=== PATIENT | female | born 1950 | race Caucasian/White ===

== ENCOUNTER 2019-06-10 11:00 | Emergency (ER) | payer OTHER, BC ==
--- OUTSIDE RECORDS SUMMARY | 2019-06-10 11:02 | XMS REPORT | Continuity of Care Document ---
:1950 Author Organization [facility] Care Team Providers Name Role Phone Jorge Ta MD Unavailable Unavailable Insurance Providers Payer name Policy type / Coverage Policy ID Covered green party ID Policy [employer] type [employer] Encounters Encounter Performer Location Date Office Visit [facility] Oct 07, 2013 Allergies, Adverse Reactions, Alerts Type Substance Reaction Status Environmental allergy SEASONAL ALLERGIES Active Problems Problem Effective Dates Problem Status HYPERTENSION Oct 07, 2013 Active ALLERGIC RHINITIS Oct 07, 2013 Active NECK PAIN Active ASTHMA Active CERVICAL DDD Oct 07, 2013 Active CERVICAL RADICULOPATHY Oct 07, 2013 Active HIP PAIN, BILATERAL Oct 07, 2013 Active Medications Medication Instructions Start Date Status MONTELUKAST SODIUM 10 MG TABS per other M.D. Oct 07, 2013 Active LEVOCETIRIZINE DIHYDROCHLORIDE 5 MG TABS per other M.D. Oct 07, 2013 Active B-12 TABS OTC Oct 07, 2013 Active DAILY VITAMINS TABS OTC Oct 07, 2013 Active MOBIC 15 MG TABS 1 PO QD Oct 07, 2013 Active Vital Signs Date Description Test Result Oct 07, 2013 weight E&M - 3141-9 WEIGHT 168 lb Oct 07, 2013 height E&M - 8302-2 HEIGHT 65 in Oct 07, 2013 blood pressure, systolic - 8480-6 BP SYSTOLIC 127 mm Hg Oct 07, 2013 blood pressure, diastolic - 8462-4 BP DIASTOLIC 79 mm Hg Oct 07, 2013 pulse rate E&M - 8867-4 PULSE RATE 68 /min
--- OUTSIDE RECORDS SUMMARY | 2019-06-10 11:02 | XMS REPORT | Continuity of Care Document ---
:1950 Author Organization [facility] Care Team Providers Name Role Phone [facility] Unavailable Unavailable Problems Problem Status Onset Classification Date Comments Source Date Reported HYPERTENSION Active 10/07/19 Condition 10/07/2013 [facility] ALLERGIC RHINITIS Active 10/07/19 Condition 10/07/2013 [facility] CERVICAL DDD Active 10/07/19 Condition 10/07/2013 [facility] CERVICAL Active 10/07/19 Condition 10/07/2013 [facility] RADICUL[facility] HIP PAIN, Active 10/07/19 Condition 10/07/2013 [facility] BILATER[facility] NECK PAIN Active Condition 10/07/2013 [facility] ASTHMA Active Condition 10/07/2013 [facility] Medications Medication Details Route Status Patient Ordering Order Source Instructions Provider Date MONTELUKAST SODIUM per other Active [facility] 10 MG TABS [facility] LEVOCETIRIZINE per other Active [facility] DIHYDROCHLORIDE 5 [facility] B-12 TABS OTC Active [facility] DAILY VITAMINS OTC Active [facility]S [facility] MOBIC 15 MG TABS 1 PO QD Active [facility] Allergies, Adverse Reactions, Alerts Substance Category Reaction Severity Reaction Status Date Comments Source type Reported SEASONAL Environmental SEASONAL [facility] ALLERGIES allergy ALLERG[facility] Immunizations No Data Provided for This Section Results No Data Provided for This Section Pathology Reports No Data Provided for This Section Diagnostic Reports No Data Provided for This Section Consultation Notes No Data Provided for This Section Discharge Summaries No Data Provided for This Section History and Physicals No Data Provided for This Section Vital Signs Vital Sign Value Date Comments Source Weight 168 10/07/2013 [facility] Height 65 10/07/2013 [facility] Systolic (mm Hg) 127 10/07/2013 [facility] Diastolic (mm Hg) 79 10/07/2013 [facility] Heart Rate 68 10/07/2013 [facility] Encounters Location Location Encounter Encounter Reason Attending ADM DC Status Source Details Type Number For Provider Date Date Visit [facility] [id number] Mohammad 10/07 10/07 [facility] Visit 80 Cely PRABHAKAR /[facility] Procedures No Data Provided for This Section Assessment and Plan No Data Provided for This Section Plan of Care No Data Provided for This Section Social History No Data Provided for This Section Family History No Data Provided for This Section Advance Directives No Data Provided for This Section Functional Status No Data Provided for This Section
[2019-06-10 11:26] LABS: Absolute Lymphocytes (CBC) 2.6 K/uL (0.7-4.9); Basophils % 0.8 % (0-1.3); Hematocrit 38.3 % (36.0-45.0); Lymphocytes % 30.7 % (15.3-44.8); MPV 8.3 fL (7.6-11.3); RBC Red Blood Cell Count 4.41 M/uL (3.86-4.86)
[2019-06-10 11:35] LABS: Protime INR 1.07
[2019-06-10 11:41] LABS: ALT/SGPT 19 U/L (12-78); AST/SGOT 13 U/L (15-37); Albumin 4.1 g/dL (3.4-5.0); Alkaline Phosphatase 82 U/L (45-117); BUN Blood Urea Nitrogen 13 mg/dL (7-18); Bicarbonate 26 mmol/L (21-32); Bilirubin Direct 0.3 mg/dL (0-0.2); Bilirubin Total 1.6 mg/dL (0.2-1.0); Glucose Level 176 mg/dL (74-106); Magnesium 2.2 mg/dL (1.8-2.4); NT PRO-BNP 34 pg/mL (<125); Potassium 3.5 mmol/L (3.5-5.1); Protein, Total 6.5 g/dL (6.4-8.2); Sodium Level 142 mmol/L (136-145); Troponin (Emerg Dept Use Only) < 0.02 ng/mL (0.0-0.045)
--- NOTE | 2019-06-10 12:25 | RAD REPORT ---
EXAM DESCRIPTION: RAD - Chest Single View - 06/10/2019 12:01 pm CLINICAL HISTORY: Syncope, shortness of breath COMPARISON: May 2015 TECHNIQUE: AP portable chest image was obtained 1124 hours . FINDINGS: Lung volumes are low. No focal lung parenchymal process. No failure or volume overload fin dings. Heart and vasculature are normal. No measurable pleural effusion and no pneumothorax. No acute bony abnormality seen. No acute aortic findings suspected. IMPRESSION: No acute cardiopulmonary process. No significant interval change.
--- NOTE | 2019-06-10 12:29 | ER ---
Nurse's Notes [facility] Name: Tasia Mcmillan Age: 68 yrs Sex: Female : 1950 Arrival Date: 06/10/2019 Time: 11:04 Bed 3 Private MD: Diagnosis: Syncope and collapse Presentation: 06/10 11:04 Presenting complaint: EMS states: pt was at the cardiac center for testing, imaging and sg stress tests, completed the stress test portion but while sitting during the imaging "felt myself sinking backward, and then just woke up with people standing around me." pt denies injury or pain at this time, was c/o nausea but after medication pt reports nausea is getting better, denies head injury or headache at this time. Transition of care: patient was received from another setting of care (ambulatory specialty care practice), Cardiac. Onset of symptoms was June 10, 2019. Risk Assessment: Do you want to hurt yourself or someone else? Patient reports no desire to harm self or others. Initial Sepsis Screen: Does the patient meet any 2 criteria? No. Patient's initial sepsis screen is negative. Does the patient have a suspected source of infection? No. Patient's initial sepsis screen is negative. Care prior to arrival: Medication(s) given: zofran 4 mg, IV initiated. 18 GA, in the right antecubital area, Glucose check: 123. 11:04 Method Of Arrival: EMS: [facility] sg 11:04 Acuity: ZAC 2 sg Historical: - Allergies: 11:08 No Known Allergies; sg - PMHx: 11:08 High Cholesterol; Hypertension; sg - PSHx: 11:08 gastric sleeve; foot; cyst removed from wrist; Hysterectomy; sg - Immunization history:: Adult Immunizations. - Social history:: Smoking status: Patient/guardian denies using tobacco. - Ebola Screening: : Patient negative for fever greater than or equal to 101.5 degrees Fahrenheit, and additional compatible Ebola Virus Disease symptoms Patient denies exposure to infectious person Patient denies travel to an Ebola-affected area in the 21 days before illness onset No symptoms or risks identified at this time. Screenin:30 Abuse screen: Denies threats or abuse. Denies injuries from another. Nutritional sg screening: No deficits noted. Tuberculosis screening: No symptoms or risk factors identified. Never had TB. Fall Risk None identified. Assessment: 11:10 General: Appears in no apparent distress. well groomed, well developed, well nourished, sg Behavior is calm, cooperative, appropriate for age. Pain: Denies pain. Neuro: Level of Consciousness is awake, alert, obeys commands, Oriented to person, place, time, situation, Bulking Machine Operator are equal bilaterally Moves all extremities. Gait is steady, Speech is normal, Facial symmetry appears normal. Cardiovascular: Capillary refill is brisk in bilateral fingers Patient's skin is warm and dry. Pulses are palpable in right radial artery and left radial artery Chest pain is denied. Respiratory: Airway is patent Respiratory effort is even, unlabored, Respiratory pattern is regular, symmetrical, Breath sounds are clear Denies cough, shortness of breath labored breathing. GI: Abdomen is round non-distended, Bowel sounds present X 4 quads. Reports tolerance of fluids, tolerance of food, Patient currently denies abdominal pain, bloody stool, cramping, diarrhea, nausea. : No signs and/or symptoms were reported regarding the genitourinary system. EENT: No signs and/or symptoms were reported regarding the EENT system. Derm: Skin is pale. Musculoskeletal: Circulation, motion, and sensation intact. Range of motion: intact in all extremities, Swelling absent. 11:33 Reassessment: pt complaining IV in RAC is painful, the koban wrap has been removed, pt sg reports IV site feels better, will continue to monitor. Vital Signs: 11:07 BP 131 / 67; Pulse 61; Resp 16; Temp 97.2; Pulse Ox 96% ; Pain 0/10; sg ED Course: 11:04 Patient arrived in ED. sg 11:04 Anton Barron PA is PHCP. jr8 11:04 Bertin Mosqueda MD is Attending Physician. jr8 11:07 Triage completed. sg 11:07 Arm band placed on. sg 11:08 Maintain EMS IV. Dressing intact. Site clean \\T\\ dry. Gauge \\T\\ site: 18 g rac. IV is sg patent, is intact, with good blood return, Flushed right antecubital saline lock with 5 ml normal saline. 11:11 EKG done, by pollution control technician. reviewed by Anton VINCENT. at1 11:41 Fry, Almas, RN is Primary Nurse. sg 12:27 Tc Gusman MD is Referral Physician. jr8 12:27 Robb Cantrell MD is Referral Physician. jr8 Administered Medications: No medications were administered Outcome: : Discharge ordered by . jr8 13:10 Discharged to home ambulatory, with friend. sg 13:10 Condition: good 13:10 Discharge instructions given to patient, Instructed on discharge instructions, follow up and referral plans. safety practices, Demonstrated understanding of instructions, follow-up care. 13:11 Patient left the ED. sg Signatures: Almas Fry, RN RN sg Anton Barron PA PA jr8 Day Worthington, regulatory affairs consultant EKG Tat1
--- NOTE | 2019-06-10 12:31 | EDPHYS ---
Physician Documentation [facility] Name: Tasia Mcmillan Age: 68 yrs Sex: Female : 1950 Arrival Date: 06/10/2019 Time: 11:04 Bed 3 Private MD: ED Physician Bertin Mosqueda HPI: 06/10 11:12 This 68 yrs old Female presents to ER via EMS with complaints of Syncope. jr8 11:12 The patient has experienced syncope. Onset: The symptoms/episode began/occurred just jr8 prior to arrival. Duration: This was a single episode. Context: the episode(s) was witnessed, Cardiology clinic staff, occurred cardiology clinic, Just prior to the episode the patient experienced no apparent symptoms. Associated injury: The patient did not suffer any apparent associated injury. Associated signs and symptoms: Pertinent positives: diaphoresis, nausea, Pertinent negatives: abdominal pain, blurred vision, confusion, diarrhea, dizziness, headache, lightheadedness. Current symptoms: Currently, the patient is not experiencing any symptoms, the patient feels back to baseline. The patient has experienced a previous episode, last year. Pt was at outpatient cardiology clinic and completed treadmill stress test, was in the sitting position for nuclear imaging and had a syncopal event. Upon EMS arrival pt was awake and diaphoretic but not bradycardic or hypotensive with normal BGL. Pt states she was not having any symptoms prior to syncopal event and denies chest pain, [place], dizziness. . Historical: - Allergies: 11:08 No Known Allergies; sg - PMHx: 11:08 High Cholesterol; Hypertension; sg - PSHx: 11:08 gastric sleeve; foot; cyst removed from wrist; Hysterectomy; sg - Immunization history:: Adult Immunizations. - Social history:: Smoking status: Patient/guardian denies using tobacco. - Ebola Screening: : Patient negative for fever greater than or equal to 101.5 degrees Fahrenheit, and additional compatible Ebola Virus Disease symptoms Patient denies exposure to infectious person Patient denies travel to an Ebola-affected area in the 21 days before illness onset No symptoms or risks identified at this time. ROS: 11:12 Constitutional: Negative for fever, chills, and weight loss, Eyes: Negative for injury, jr8 pain, redness, and discharge, ENT: Negative for injury, pain, and discharge, Neck: Negative for injury, pain, and swelling, Cardiovascular: Negative for chest pain, palpitations, and edema, Respiratory: Negative for shortness of breath, cough, wheezing, and pleuritic chest pain, Abdomen/GI: Negative for abdominal pain, nausea, vomiting, diarrhea, and constipation, Back: Negative for injury and pain, MS/Extremity: Negative for injury and deformity, Skin: Negative for injury, rash, and discoloration, Neuro: Negative for headache, weakness, numbness, tingling, and seizure. Exam: 11:12 Constitutional: This is a well developed, well nourished patient who is awake, alert, jr8 and in no acute distress. Head/Face: Normocephalic, atraumatic. Eyes: Pupils equal round and reactive to light, extra-ocular motions intact. Lids and lashes normal. Conjunctiva and sclera are non-icteric and not injected. Cornea within normal limits. Periorbital areas with no swelling, redness, or edema. ENT: Nares patent. No nasal discharge, no septal abnormalities noted. Tympanic membranes are normal and external auditory canals are clear. Oropharynx with no redness, swelling, or masses, exudates, or evidence of obstruction, uvula midline. Mucous membranes moist. Neck: Trachea midline, no thyromegaly or masses palpated, and no cervical lymphadenopathy. Supple, full range of motion without nuchal rigidity, or vertebral point tenderness. No Meningismus. Chest/axilla: Normal chest wall appearance and motion. Nontender with no deformity. No lesions are appreciated. Cardiovascular: Regular rate and rhythm with a normal S1 and S2. No gallops, murmurs, or rubs. Normal PMI, no JVD. No pulse deficits. Respiratory: Lungs have equal breath sounds bilaterally, clear to auscultation and percussion. No rales, rhonchi or wheezes noted. No increased work of breathing, no retractions or nasal flaring. Abdomen/GI: Soft, non-tender, with normal bowel sounds. No distension or tympany. No guarding or rebound. No evidence of tenderness throughout. Back: No spinal tenderness. No costovertebral tenderness. Full range of motion. Skin: Warm, dry with normal turgor. Normal color with no rashes, no lesions, and no evidence of cellulitis. MS/ Extremity: Pulses equal, no cyanosis. Neurovascular intact. Full, normal range of motion. Neuro: Awake and alert, GCS 15, oriented to person, place, time, and situation. Cranial nerves II-XII grossly intact. Motor strength 5/5 in all extremities. Sensory grossly intact. Cerebellar exam normal. Normal gait. 11:12 ECG was reviewed by the Attending Physician. Vital Signs: 11:07 BP 131 / 67; Pulse 61; Resp 16; Temp 97.2; Pulse Ox 96% ; Pain 0/10; sg MDM: 11:04 Patient medically screened. [facility] 12:25 Data reviewed: vital signs, nurses notes, lab test result(s), EKG, radiologic studies, [facility] plain films. Data interpreted: Pulse oximetry: on room air is 96 %. Interpretation: normal. Counseling: I had a detailed discussion with the patient and/or guardian regarding: the historical points, exam findings, and any diagnostic results supporting the discharge/admit diagnosis, lab results, radiology results, the need for outpatient follow up, a solar sales specialist, to return to the emergency department if symptoms worsen or persist or if there are any questions or concerns that arise at home. Response to treatment: the patient's symptoms have resolved after treatment, the patient's blood pressure is in an acceptable range, mental status has returned to baseline, the patient no longer shows bradycardia, the patient is not short of breath, the patient is not tachycardic. ED course: Dr. Gusman consulted on case as well. Reviewed all patients cardiac stress tests from today and without acute finding. Patient stable here and without acute finding. Dr. Gusman good with her going home if she feels fine and is still stable which patient is. To see patient in office at 8:30 am tomorrow. Patient is good with this plan and wants to go home . 06/10 11:05 Order name: Basic Metabolic Panel 06/10 11:05 Order name: CBC with Diff 06/10 11:05 Order name: LFT's 06/10 11:05 Order name: Magnesium 06/10 11:05 Order name: NT PRO-BNP 06/10 11:05 Order name: PT-INR 06/10 11:05 Order name: Troponin (emerg Dept Use Only) 06/10 11:19 Order name: Glucose, Ancillary Testing; Complete Time: 11:19 EDMS 06/10 11:38 Order name: Protime (+INR); Complete Time: 11:57 EDMS 06/10 11:43 Order name: Basic Metabolic Panel; Complete Time: 11:57 EDMS 06/10 11:43 Order name: Liver (Hepatic) Function; Complete Time: 11:57 EDMS 06/10 11:43 Order name: Troponin (Emerg Dept Use Only); Complete Time: 11:57 EDMS 06/10 11:43 Order name: NT PRO-BNP; Complete Time: 11:57 EDMS 06/10 11:43 Order name: Magnesium; Complete Time: 11:57 EDMS 06/10 11:05 Order name: XRAY Chest (1 view) [facility] 06/10 11:05 Order name: EKG; Complete Time: 11:09 [facility] 06/10 11:05 Order name: Cardiac monitoring; Complete Time: 11:12 [facility] 06/10 11:05 Order name: EKG - Nurse/Tech; Complete Time: 11:12 [facility] 06/10 11:05 Order name: IV Saline Lock; Complete Time: 11:12 [facility] 06/10 11:05 Order name: Labs collected and sent; Complete Time: 11:12 [facility] 06/10 11:05 Order name: O2 Per Protocol; Complete Time: 11:12 [facility] 06/10 11:05 Order name: O2 Sat Monitoring; Complete Time: 11:12 [facility] 06/10 11:05 Order name: [employer] [facility] 06/10 11:43 Order name: CBC with Automated Diff; Complete Time: 11:57 EDMS EC:06 Rate is 62 beats/min. Rhythm is regular. QRS [place] is Normal. [place] interval is normal at jr8 150 msec. QRS interval is normal at 82 msec. QT interval is normal at 454 msec. No Q waves. T waves are Normal. No ST changes noted. Clinical impression: Normal ECG. Interpreted by me. Reviewed by me. Administered Medications: No medications were administered Disposition: 13:48 Co-signature as Attending Physician, Bertin Mosqueda MD I agree with the assessment and kdr plan of care. Disposition: 06/10/19 12:27 Discharged to Home. Impression: Syncope and collapse. - Condition is Stable. - Discharge Instructions: Syncope. - Medication Reconciliation Form, Thank You Letter, Antibiotic Education, Prescription Opioid Use form. - Follow up: Tc Gusman MD; When: Tomorrow; Reason: Recheck today's complaints, Continuance of care, Re-evaluation by your physician. Follow up: Robb Cantrell MD; When: 5 - 6 days; Reason: Recheck today's complaints, Continuance of care, Re-evaluation by your physician. - Problem is new. - Symptoms are resolved. - Notes: Dr. Gusman's office tomorrow 8:30 am Signatures: Dispatcher [employer] EDMS Almas Fry RN RN sg Bertin Mosqueda MD MD kdr Anton Barron PA PA jr8 Corrections: (The following items were deleted from the chart) 12:27 12:27 06/10/2019 12:27 Discharged to Home. Impression: Syncope and collapse. Condition jr8 is Stable. Forms are Medication Reconciliation Form, Thank You Letter, Antibiotic Education, Prescription Opioid Use. Follow up: Tc Gusman; When: Tomorrow; Reason: Recheck today's complaints, Continuance of care, Re-evaluation by your physician. Problem is new. Symptoms are resolved. jr8 13:11 12:27 06/10/2019 12:27 Discharged to Home. Impression: Syncope and collapse. Condition sg is Stable. Discharge Instructions: Syncope. Forms are Medication Reconciliation Form, Thank You Letter, Antibiotic Education, Prescription Opioid Use. Follow up: Tc Gusman; When: Tomorrow; Reason: Recheck today's complaints, Continuance of care, Re-evaluation by your physician. Follow up: Robb Cantrell; When: 5 - 6 days; Reason: Recheck today's complaints, Continuance of care, Re-evaluation by your physician. Problem is new. Symptoms are resolved. jr8
[2019-06-10 15:41] VITALS: BP 131/67; TEMP 97.2; O2SAT 96
--- NOTE | 2019-06-11 10:35 | EKG ---
Test Date: 2019-06-10 Test Time: 11:06:20 [facility] Nurse: SERG MEASUREMENT RESULTS: Intervals: Rate: 62 KS: 150 QRSD: 82 QT: 454 QTc: 460 [place]: P: 39 KS: 150 QRS: 7 T: 70 INTERPRETIVE STATEMENTS: Normal sinus rhythm Normal ECG Compared to ECG 05/27/2015 06:10:14 No significant changes Electronically Signed On 06-11-19 10:31:54 CDT by Tc Gusman
== END 2019-06-10 13:11 | disposition home or self-care (01) ==
LOC: ER 11:00
DX: R55 Syncope and collapse (principal)
CPT/HCPCS: 36415; 71045; 80048; 80076; 82962; 83735; 83880; 84484; 85025; 85610; 93005; 99283